=== PATIENT | female | born 1970 | race Caucasian/White ===

== ENCOUNTER 2016-11-25 19:52 | Inpatient (IN) | payer BC ==
[~2016-11-25] VITALS: Ht 165.1 cm
[~2016-11-25 19:52] MED LIST: OXYC1TAB3 PO; PRLSR20 PO; ZLF/50 PO
[2016-11-25] MEDS ORDERED: SODIUM CHLORIDE 0.9% 1000ML 1,000 ML IV STA ×2 (20:25)
[2016-11-25] MEDS ORDERED: MoRPHine SULFATE 10 MG/ML CARP/VIAL IV STA (20:25)
[2016-11-25] MEDS ORDERED: ONDANSETRON INJ 2 MG/ML 2 ML VIAL IV STA (20:25)
[2016-11-25] MEDS ORDERED: MoRPHine SULFATE 4 MG/ML 1 ML CARP\\VIAL IV PRN ×2 (20:30→22:15)
[2016-11-25 20:34] LABS: BASO % 0.5 %; BASO ABS # 0.05 K/uL (0-0.2); COMPLETE YES; EOS % 1.2 %; HEMATOCRIT 42.6 % (37-47); IG% 0.2 %; LYMPH % 30.8 %; LYMPH ABS # 2.88 K/uL (1.2-3.4); MEAN CORPUSCULAR HEMOGLOBIN 33.1 pg (25-34); MEAN CORPUSCULAR HGB CONC 35.2 g/dl (32-36); MEAN PLATELET VOLUME 11.5 fL (7.4-10.4); MONO % 6.7 %; NEUT % 60.6 %; PLATELET COUNT 270 K/uL (130-400); RED BLOOD COUNT 4.53 M/uL (4.2-5.4); WHITE BLOOD COUNT 9.35 K/uL (4.8-10.8)
--- NOTE | 2016-11-25 20:48 | DIAGNOSTIC IMAGING REPORT ---
CHEST ONE VIEW PORTABLE CLINICAL HISTORY: epigastric pain dyspnea COMPARISON STUDY: 11/14/2016 FINDINGS: The bones soft tissues and hemidiaphragms are normal. The cardiomediastinal silhouette is normal. The lungs are clear. The pulmonary vasculature is normal. IMPRESSION: Negative chest. Electronically signed by: Gold Schuler M.D. 11/25/2016 8:46 PM
[2016-11-25 20:59] LABS: ALT/SGPT 38 U/L (12-78); AMYLASE 41 U/L (25-115); BLOOD UREA NITROGEN 21 mg/dl (7-18); BUN/CREATININE RATIO 17.3 (10-20); CALCIUM 8.7 mg/dl (8.5-10.1); CARBON DIOXIDE 22 mmol/L (21-32); CHLORIDE 108 mmol/L (98-107); GLUCOSE 98 mg/dl (70-99); POTASSIUM 3.6 mmol/L (3.5-5.1); SODIUM 142 mmol/L (136-145)
[2016-11-25 21:04] LABS: ALKALINE PHOSPHATASE 73 U/L (45-117); AST/SGOT 34 U/L (15-37)
[2016-11-25 21:20] LABS: MANUAL MICROSCOPIC REQUIRED? NO; REVIEW REQ? NO; URINE APPEARANCE CLEAR (CLEAR); URINE BILIRUBIN NEG (NEG); URINE COLOR YELLOW; URINE NITRITE NEG (NEG); URINE PH 7.5 (4.5-7.5); URINE SPECIFIC GRAVITY 1.018 (1.000-1.030); UROBILINOGEN NEG (NEG)
--- NOTE | 2016-11-25 21:52 | DIAGNOSTIC IMAGING REPORT ---
Right upper quadrant ultrasound GALLBLADDER-ABD LIMITED CLINICAL HISTORY: EPIGASTRIC/ RUQ PAIN nausea TECHNIQUE: Ultrasound COMPARISON STUDY: 11/14/2016 FINDINGS: Multiple small gallstones. Gallbladder wall is slightly prominent at 4 mm. Trace amount of associated sludge within the gallbladder lumen. Common bile duct 5/6 mm throughout the bulk of this finding with slight prominence of diameter distally at 7 mm. This is unchanged from the prior study liver is uniform. Pancreas is unremarkable. IMPRESSION: Multiple small gallstones combine with a small amount of gallbladder sludge. 2. Slight thickening of the gallbladder wall with no evidence for pericholecystic fluid. 3. Slight prominence of the extra hepatic common bile duct distally unchanged from the prior study. Electronically signed by: Gold Schuler M.D. 11/25/2016 9:50 PM
[2016-11-25] MEDS ORDERED: ONDANSETRON INJ 2 MG/ML 2 ML VIAL IV PRN ×2 (22:15→23:15)
[2016-11-25] MEDS ORDERED: TRAMADOL HCL 50 MG TAB PO PRN (22:15)
--- NOTE | 2016-11-25 22:15 | EMERGENCY ROOM VISIT NOTE ---
History First contact with patient: 20:17 Chief Complaint: GI ASSESSMENT Stated Complaint: GALL BLADDER ATTACK Nursing Triage Summary: pt reports hx of gall bladder "sludge" reports RUQ abdominal pain and nausea all day History of Present Illness Patient is a 46-year-old white female who presents emergency department for evaluation of a "gallbladder attack." She was here last week for similar symptoms. She was told that she had sludge in her gallbladder. She is in the process of getting scheduled for follow-up and for a surgical evaluation. Patient states that she has been feeling well until today. She has had some loose bowel movements for most of the day, but began to feel nauseous this evening, and then developed sharp, stabbing pain in the epigastric that wraps around underneath her right breast and around her right rib cage to her right back. She rates her pain an 8/10. She had hydrocodone from her last ED visit that she took which provided her with little relief. She denies vomiting. She feels hot and sweaty. She denies any pain that radiates up into the chest, palpitations or shortness of breath. No cough, wheezing or hemoptysis. No urinary symptoms. She admits that she drinks a couple of beers daily. Last alcohol was yesterday. She ate pork and sauerkraut earlier today, but did not have that much as she did not have an appetite. Review of Systems Review of systems as per HPI. All other systems reviewed were negative. 10 systems reviewed. Past Medical/Surgical History Medical Problems: (1) Bronchitis (2) Smoking hx Surgical Problems: (1) H/O tubal ligation Family History Blood clots Gallbladder disease Heart disease Social History Smoking Status: Current Every Day Smoker Alcohol Use: heavy (beer daily) Drug Use: none Marital Status: Housing Status: lives with family Occupation Status: employed Current/Historical Medications Scheduled Omeprazole (Prilosec), 20 MG PO BID Sertraline HCl (Sertraline HCl), 75 MG PO DAILY Scheduled PRN Oxycodone Ir (Roxicodone Ir), 1-2 TAB PO Q4H PRN for Pain Allergies Coded Allergies: No Known Allergies (Verified , 11/25/16) Physical Exam Vital Signs Date Time Temp Pulse Resp B/P Pulse Ox O2 Delivery O2 Flow Rate FiO2 11/25/16 21:38 65 18 134/75 96 Room Air 11/25/16 20:47 63 11/25/16 19:59 37.0 84 18 134/92 100 Room Air Physical Exam CONSTITUTIONAL: Patient is an uncomfortable 46-year-old white female who is awake, alert, slightly diaphoretic and fidgeting due to her pain. EYES: Pupils equal, round, reactive to light and accommodation. EOMs intact without nystagmus. Sclera are anicteric. ENT: Tympanic membranes intact, with normal landmarks. External canals are clear. Oral and nasopharynx are clear. Mucous membranes are moist, no lesions , tongue and gums appear normal. CARDIOVASCULAR: Regular rate and rhythm, with normal S1 and S2, no murmur or gallop or rub is heard. No carotid bruits auscultated. No JVD. Peripheral pulses easy to palpable. RESPIRATORY: Breath sounds equal and clear to auscultation without wheezes, rales, or rhonchi heard. Full and equal chest expansion without accessory muscle use or retractions. GI: Bowel sounds are present. Abdomen is soft, nondistended, tender to palpation in the epigastric and the right upper quadrant, with voluntary guarding. MUSCULOSKELETAL: Full range of motion of extremities x 4 with good strength. No cyanosis, edema, joint tenderness or swelling. No deformity. INTEGUMENTARY: No lesions or rash, normal skin turgor. NEUROLOGICAL: Alert, oriented, and cooperative. Cranial nerves, sensation and strength grossly intact. Pupils round, equal, and react to light, EOMs are full. LYMPH: No lymphadenopathy. Medical Decision & Procedures ER Provider Diagnostic Interpretation: CHEST ONE VIEW PORTABLE CLINICAL HISTORY: epigastric pain dyspnea COMPARISON STUDY: 11/14/2016 FINDINGS: The bones soft tissues and hemidiaphragms are normal. The cardiomediastinal silhouette is normal. The lungs are clear. The pulmonary vasculature is normal. IMPRESSION: Negative chest. Right upper quadrant ultrasound GALLBLADDER-ABD LIMITED CLINICAL HISTORY: EPIGASTRIC/ RUQ PAIN nausea TECHNIQUE: Ultrasound COMPARISON STUDY: 11/14/2016 FINDINGS: Multiple small gallstones. Gallbladder wall is slightly prominent at 4 mm. Trace amount of associated sludge within the gallbladder lumen. Common bile duct 5/6 mm throughout the bulk of this finding with slight prominence of diameter distally at 7 mm. This is unchanged from the prior study liver is uniform. Pancreas is unremarkable. IMPRESSION: Multiple small gallstones combine with a small amount of gallbladder sludge. 2. Slight thickening of the gallbladder wall with no evidence for pericholecystic fluid. 3. Slight prominence of the extra hepatic common bile duct distally unchanged from the prior study. Laboratory Results 11/25/16 20:15 Red Blood Count 4.53, Mean Corpuscular Volume 94.0, Mean Corpuscular Hemoglobin 33.1, Mean Corpuscular Hemoglobin Concent 35.2, Mean Platelet Volume 11.5, Neutrophils (%) (Auto) 60.6, Lymphocytes (%) (Auto) 30.8, Monocytes (%) (Auto) 6.7, Eosinophils (%) (Auto) 1.2, Basophils (%) (Auto) 0.5, Neutrophils # (Auto) 5.66, Lymphocytes # (Auto) 2.88, Monocytes # (Auto) 0.63, Eosinophils # (Auto) 0.11, Basophils # (Auto) 0.05 11/25/16 20:15 Test 11/25/16 20:15 11/25/16 21:00 White Blood Count 9.35 K/uL (4.8-10.8) Red Blood Count 4.53 M/uL (4.2-5.4) Hemoglobin 15.0 g/dL (12.0-16.0) Hematocrit 42.6 % (37-47) Mean Corpuscular Volume 94.0 fL (80-100) Mean Corpuscular Hemoglobin 33.1 pg (25-34) Mean Corpuscular Hemoglobin Concent 35.2 g/dl (32-36) Platelet Count 270 K/uL (130-400) Mean Platelet Volume 11.5 fL (7.4-10.4) Neutrophils (%) (Auto) 60.6 % Lymphocytes (%) (Auto) 30.8 % Monocytes (%) (Auto) 6.7 % Eosinophils (%) (Auto) 1.2 % Basophils (%) (Auto) 0.5 % Neutrophils # (Auto) 5.66 K/uL (1.4-6.5) Lymphocytes # (Auto) 2.88 K/uL (1.2-3.4) Monocytes # (Auto) 0.63 K/uL (0.11-0.59) Eosinophils # (Auto) 0.11 K/uL (0-0.5) Basophils # (Auto) 0.05 K/uL (0-0.2) RDW Standard Deviation 48.4 fL (36.4-46.3) RDW Coefficient of Variation 14.1 % (11.5-14.5) Immature Granulocyte % (Auto) 0.2 % Immature Granulocyte # (Auto) 0.02 K/uL (0.00-0.02) Anion Gap 12.0 mmol/L (3-11) Estimated GFR () 63.7 Estimated GFR (Non- 54.9 BUN/Creatinine Ratio 17.3 (10-20) Calcium Level 8.7 mg/dl (8.5-10.1) Total Bilirubin 0.1 mg/dl (0.2-1) Direct Bilirubin < 0.1 mg/dl (0-0.2) Aspartate Amino Transf (AST/SGOT) 34 U/L (15-37) Alanine Aminotransferase (ALT/SGPT) 38 U/L (12-78) Alkaline Phosphatase 73 U/L (45-117) Troponin I < 0.015 ng/ml (0-0.045) Total Protein 7.6 gm/dl (6.4-8.2) Albumin 3.7 gm/dl (3.4-5.0) Amylase Level 41 U/L (25-115) Lipase 295 U/L (73-393) Urine Color YELLOW Urine Appearance CLEAR (CLEAR) Urine pH 7.5 (4.5-7.5) Urine Specific [place] 1.018 (1.000-1.030) Urine Protein NEG (NEG) Urine Glucose (UA) NEG (NEG) Urine Ketones NEG (NEG) Urine Occult Blood NEG (NEG) Urine Nitrite NEG (NEG) Urine Bilirubin NEG (NEG) Urine Urobilinogen NEG (NEG) Urine Leukocyte Esterase NEG (NEG) Medications Administered Medications (Trade) Dose Ordered Sig/Matteo Route Start Time Stop Time Status Last Admin Dose Admin Sodium Chloride 1,000 ml @ 999 mls/hr Q1H1M STAT IV 11/25/16 20:25 11/25/16 21:25 DC 11/25/16 20:39 999 MLS/HR Sodium Chloride (Nss 1000ml) 1,000 ml @ 250 mls/hr Q4H STAT IV 11/25/16 20:25 11/26/16 00:24 11/25/16 20:25 250 MLS/HR Ondansetron HCl (Zofran Inj) 4 mg NOW STAT IV 11/25/16 20:25 11/25/16 20:28 DC 11/25/16 20:37 4 MG Morphine Sulfate (MoRPHine SULFATE INJ) 6 mg NOW STAT IV 11/25/16 20:25 11/25/16 20:28 DC 11/25/16 20:38 6 MG Morphine Sulfate (MoRPHine SULFATE INJ) 4 mg Q1H PRN IV 11/25/16 20:30 12/09/16 20:29 11/25/16 21:54 4 MG ECG Indication: abdominal pain, chest pain Rate (beats per minute): 65 Rhythm: normal sinus Findings: no acute ischemic change Change: no significant change ED Course The patient was seen and assessed as above. Her old records were reviewed. IV access was obtained. Laboratory studies were collected and she is placed on a staffing executive. EKG was performed and was as noted above. Stat portable chest x-ray was obtained and was unremarkable. Patient was medicated with morphine 4 mg IV 2 and Zofran 4 mg IV. She was hydrated with normal saline solution. Urinalysis, CBC with differential, BMP, LFTs, amylase, lipase and troponin were all drawn. Right upper quadrant ultrasound was performed. Laboratory studies revealed a normal white count at 9300, H&H is normal. Electrolytes are within normal limits. BUN and creatinine 21 and 1.2. Liver functions and a gritty enzymes are not elevated. Troponin is 1. Urinalysis was clear. Chest x-ray was unremarkable. Right upper quadrant ultrasound again demonstrated cholelithiasis and gallbladder sludge. The gallbladder wall is slightly thickened, but there is no evidence for pericholecystic fluid. Ultrasound and labs are not indicative of acute cholecystitis at this time. The patient was reassessed. She still continues to have some pain and was concerned about her ability to manage her symptoms at home. Treatment options were discussed with her. She was feeling more comfortable coming into the hospital for pain management. Patient was reviewed with the attending physician , discussed with the it manager and [facility] and [facility]. Differential diagnoses entertained included ACS, acute [place], gastritis, esophagitis, peptic ulcer disease, perforated ulcer, pancreatitis, acute cholecystitis, ascending cholangitis, biliary colic, bowel section, among others. Medical Decision See ED Course. Impression Primary Impression: Biliary colic Departure Information Referrals Gina Morrissey M.D. (PCP) Patient Instructions A Signature Page, My [facility]
[2016-11-25] MEDS ORDERED: IV FLUIDS COMPLETED PRN (23:00)
[2016-11-25 23:06] LABS: THYROID STIMULATING HORMONE 3.13 uIu/ml (0.300-4.500)
[2016-11-25] MEDS ORDERED: ACETAMINOPHEN 325 MG TAB PO PRN (23:15)
[2016-11-25] MEDS ORDERED: LORAZEPAM 2 MG/ML 1 ML VIAL IV PRN (23:15)
[2016-11-25] MEDS ORDERED: PROMETHAZINE HCL INJ 12.5 MG in SODIUM CHLORIDE 0.9% 50ML 50 ML IV PRN (23:15)
[2016-11-26 00:45] VITALS: BP 141/89; PULSE 70; TEMP 36.4; Ht 165.1 cm
--- NOTE | 2016-11-26 00:49 | HISTORY & PHYSICAL EXAMINATION ---
DATE OF ADMISSION: 11/25/2016 PRIMARY CARE PHYSICIAN: Dr. Morrissey. Hx obtained from px and records. CHIEF COMPLAINT: Abdominal pain. HISTORY OF PRESENT ILLNESS: Medical history significant for mood disorder, GERD, ongoing tobacco abuse. One week history of epigastric pain, achy, going to her right side, worse with eating. Patient was seen at the Emergency Room last week. Gallbladder ultrasound showed trace amount of sludge and debris in the gallbladder lumen. Impression was biliary colic. The patient discharged on pain meds. Outpatient Surgery consultation recommended. Constant waxing and waning abd pain at home. No fever, no chills, some nausea, stools dark and loose. No emesis. Patient returned to the Emergency Room. MEDICAL HISTORY: As above. SURGERIES: She has had bilateral tubal ligation, gynecologic procedures, breast lump removal, back surgery, soft tissue(lipoma) removal. HOME MEDICATIONS: Include Prilosec, sertraline. ALLERGIES: No known drug allergies. FAMILY HISTORY: Gallbladder, heart disease, stroke. PERSONAL AND SOCIAL HISTORY: Reports one-fourth pack daily. No chronic intake of alcohol. 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 REVIEW OF SYSTEMS: As per HPI, all other ROS negative. PHYSICAL EXAMINATION: VITAL SIGNS: Blood pressure was noted to be 154/92, pulse 84, RR 18, T 37, O2 sats 100 on room air. GENERAL: Noted to be slightly uncomfortable, obese, no respiratory distress. SKIN : normal color HEENT: [place] palpebral conjunctivae. Dry mucosa. NECK: Short neck. LUNGS: Decreased breath sounds. HEART: Regular rate and rhythm. ABDOMEN: Epigastric tenderness. RECTAL : intact sphincter, dark brown stool, FOBT negative EXTREMITIES: No edema. no tenderness NEUROLOGIC: No gross focality. LABORATORY DATA: Hemoglobin is 15, hematocrit 42.6, white cell count 7.3, platelets 270. Sodium 140, potassium 3.6, chloride 108, CO2 22, BUN 29, creatinine 1.2, glucose is noted to be 98. LFTs, lipase normal Gallbladder ultrasound, slight thickening of the gallbladder wall with no evidence of pericholecystic fluid, multiple gallstones with multiple amount of gallbladder sludge. ASSESSMENT: 1. Biliary colic intractable symptoms. no sepsis. 2. Mood disorder. stable on meds 3. Ongoing tobacco abuse. 4. loose stools ro cdif PLAN: Observation GMF analgesia Surgery consult. RE biliary colic stool cdif Nicotine patch. DVT prophylaxis, SCDs. Full code. MTDD
[2016-11-26] MEDS ORDERED: LORAZEPAM INJ 0.5 MG in SYRINGE 0.75 ML IV PRN (01:45)
[2016-11-26] MEDS: LACTATED RINGER'S 1000ML 1,000 ML IV SCH ×2 (02:08→11:09)
[2016-11-26] MEDS: KETOROLAC TROMETHAMINE 30 MG/ML VIAL IV PRN ×3 (02:12→21:06)
[2016-11-26 03:40] LABS: PREG INTERNAL NEGATIVE QC NEG CLEAR BACKGROUND; PREG INTERNAL POSITIVE QC POS CONTROL LINE
[2016-11-26 07:00] VITALS: BP 110/74; PULSE 53; TEMP 36.3; O2SAT 96
[2016-11-26] MEDS: PANTOprazole SOD 40 MG TAB PO SCH ×2 (08:19→21:06)
[2016-11-26] MEDS: SERTRALINE HCL 50 MG TAB PO SCH (08:19)
[2016-11-26] MEDS: NICOTINE 7 MG/24 HR TDSY TD SCH (08:20)
--- NOTE | 2016-11-26 10:54 | History and Physical ---
History & Physical Date & Time of Service: Nov 26, 2016 at 10:42 Chief Complaint: Biliary Colic Primary Care Physician: Gina Morrissey M.D. History of Present Illness Source: patient Taina Conway is a 46 year old female who was admitted to hospital for RUQ pain with nausea foe 1 week, last week, pt came to ER with RUQ pain, pt was sent to home with pain medicine, now, pt is still have RUQ pain, and with nausea , pt denies fever, no diarrhea, but some back pain, the fat food is worse pain, Past Medical/Surgical History Medical Problems: (1) Biliary colic Status: Resolved (2) Bronchitis Status: Resolved (3) Depressive Disorder Nec Status: Chronic (4) Epigastric abdominal pain Status: Resolved (5) GERD (gastroesophageal reflux disease) Status: Chronic (6) Non-cardiac chest pain Status: Resolved Surgical Problems: (1) H/O tubal ligation Status: Resolved Social History Problems: (1) Smoking hx Status: Chronic Family History Blood clots Gallbladder disease Heart disease mother and sister had gallstones. Social History Smoking Status: Current Every Day Smoker Smokeless Tobacco Use: No Alcohol Use: occasionally Drug Use: none Marital Status: Occupational Status: employed Immunizations History of Influenza Vaccine: Yes History of Tetanus Vaccine?: Unknown Tetanus Immunization Date: Jul 18, 2004 History of Pneumococcal: No History of Hepatitis B Vaccine: Unknown Allergies Coded Allergies: No Known Allergies (Verified , 11/25/16) Home Medications Scheduled Omeprazole (Prilosec), 20 MG PO BID Sertraline HCl (Sertraline HCl), 75 MG PO DAILY Scheduled PRN Oxycodone Ir (Roxicodone Ir), 1-2 TAB PO Q4H PRN for Pain Review of Systems Constitutional: No chills, No fatigue, No fever, No problem reported, No sweats , No weakness, No weight loss Eyes: No diplopia, No discharge, No eye pain, No problem reported, No redness, No worsening of vision ENT: No dental problems, No hearing loss, No nasal symptoms, No problem reported, No sore throat, No tinnitus, No trouble swallowing, No unusual epistaxis Respiratory: No cough, No dyspnea at rest, No dyspnea on exertion, No hemoptysis, No problem reported, No shortness of breath, No sputum, No wheezing Cardiovascular: No PND, No chest pain, No claudication, No edema, No orthopnea , No palpitations, No problem reported Abdomen: + nausea, + pain Musculoskeletal: No calf pain, No joint pain, No muscle pain, No problem reported, No swelling Genitourinary - Female: No dysmenorrhea, No dysuria, No hematuria, No menorrhagia, No metrorrhagia, No , No problem reported, No rash, No urinary frequency, No urinary incontinence, No urinary retention, No urinary urgency, No vaginal bleeding, No vaginal discharge, No vaginal itching, No vulvodynia Neurologic: No balance problems, No memory loss, No numbness/tingling, No paralysis, No problem reported, No vertigo, No weakness Psychiatric: + anxiety Endocrine: No excessive thirst, No excessive urination, No fatigue, No problem reported Hematologic / Lymphatic: No abnormal bleeding/bruising, No clotting problems, No night sweats, No problem reported, No swollen lymph nodes Allergic / Immunologic: No environmental allergies, No food allergies, No frequent infections, No hives, No pet sensitivities, No poor healing, No problem reported, No prolonged convalescence, No seasonal allergies Physical Exam Vital Signs Date Time Temp Pulse Resp B/P Pulse Ox O2 Delivery O2 Flow Rate FiO2 11/26/16 07:12 Room Air 11/26/16 07:00 36.3 53 18 110/74 96 Room Air 11/26/16 00:45 36.4 70 18 141/89 Room Air 11/26/16 00:13 65 18 143/41 97 Room Air 11/25/16 21:38 65 18 134/75 96 Room Air 11/25/16 20:47 63 11/25/16 19:59 37.0 84 18 134/92 100 Room Air General Appearance: WD/WN, no apparent distress Head: normocephalic Eyes: normal inspection ENT: normal ENT inspection Neck: supple Respiratory/Chest: chest non-tender Cardiovascular: regular rate, rhythm, no edema, no gallop, no JVD Abdomen/GI: normal bowel sounds, soft, + tenderness Back: normal inspection Extremities/Musculoskelatal: normal inspection, no calf tenderness, normal capillary refill, no pedal edema Neurologic/Psych: grubber II-XII nml as tested, no motor/sensory deficits Skin: normal color, warm/dry, no rash Lymphatic: no adenopathy Diagnostics Laboratory Results Results Past 24 Hours Test 11/25/16 20:15 11/25/16 21:00 Range/Units White Blood Count 9.35 4.8-10.8 K/uL Red Blood Count 4.53 4.2-5.4 M/uL Hemoglobin 15.0 12.0-16.0 g/dL Hematocrit 42.6 37-47 % Mean Corpuscular Volume 94.0 80-100 fL Mean Corpuscular Hemoglobin 33.1 25-34 pg Mean Corpuscular Hemoglobin Concent 35.2 32-36 g/dl Platelet Count 270 130-400 K/uL Mean Platelet Volume 11.5 7.4-10.4 fL Neutrophils (%) (Auto) 60.6 % Lymphocytes (%) (Auto) 30.8 % Monocytes (%) (Auto) 6.7 % Eosinophils (%) (Auto) 1.2 % Basophils (%) (Auto) 0.5 % Neutrophils # (Auto) 5.66 1.4-6.5 K/uL Lymphocytes # (Auto) 2.88 1.2-3.4 K/uL Monocytes # (Auto) 0.63 0.11-0.59 K/uL Eosinophils # (Auto) 0.11 0-0.5 K/uL Basophils # (Auto) 0.05 0-0.2 K/uL RDW Standard Deviation 48.4 36.4-46.3 fL RDW Coefficient of Variation 14.1 11.5-14.5 % Immature Granulocyte % (Auto) 0.2 % Immature Granulocyte # (Auto) 0.02 0.00-0.02 K/uL Sodium Level 142 136-145 mmol/L Potassium Level 3.6 3.5-5.1 mmol/L Chloride Level 108 98-107 mmol/L Carbon Dioxide Level 22 21-32 mmol/L Anion Gap 12.0 3-11 mmol/L Blood Urea Nitrogen 21 7-18 mg/dl Creatinine 1.20 0.60-1.20 mg/dl Estimated GFR () 63.7 Estimated GFR (Non- 54.9 BUN/Creatinine Ratio 17.3 10-20 Random Glucose 98 70-99 mg/dl Calcium Level 8.7 8.5-10.1 mg/dl Magnesium Level 2.0 1.8-2.4 mg/dl Total Bilirubin 0.1 0.2-1 mg/dl Direct Bilirubin < 0.1 0-0.2 mg/dl Aspartate Amino Transf (AST/SGOT) 34 15-37 U/L Alanine Aminotransferase (ALT/SGPT) 38 12-78 U/L Alkaline Phosphatase 73 45-117 U/L Troponin I < 0.015 0-0.045 ng/ml Total Protein 7.6 6.4-8.2 gm/dl Albumin 3.7 3.4-5.0 gm/dl Amylase Level 41 25-115 U/L Lipase 295 73-393 U/L Thyroid Stimulating Hormone (TSH) 3.130 0.300-4.500 uIu/ml Urine Color YELLOW Urine Appearance CLEAR CLEAR Urine pH 7.5 4.5-7.5 Urine Specific [place] 1.018 1.000-1.030 Urine Protein NEG NEG Urine Glucose (UA) NEG NEG Urine Ketones NEG NEG Urine Occult Blood NEG NEG Urine Nitrite NEG NEG Urine Bilirubin NEG NEG Urine Urobilinogen NEG NEG Urine Leukocyte Esterase NEG NEG Urine Test NEG NEG Diagnostic Radiology U/S-IMPRESSION: Multiple small gallstones combine with a small amount of gallbladder sludge. 2. Slight thickening of the gallbladder wall with no evidence for pericholecystic fluid. 3. Slight prominence of the extra hepatic common bile duct distally unchanged from the prior study. Impression Assessment and Plan IMP Acute cholecystitis. Plan, IV fluid, IV antibiotic, control pain, Full liquid diet today, NPO from [place] Pt will go to OR for laparoscopic cholecystectomy, possible open or cholangiogram, D/W benefits, risks and alternatives of the procedure, the risks- infection, bleeding, injury CBD, bowel, may need ERCP, GA, dvt, stroke, incisional hernia, , pt understood, she agrees with the plan. I answered all questions, Advanced Directives Existing Advance Directive: No Existing Living Will: No Existing Power of Javascript Developer: No VTE Prophylaxis VTE Risk Assessment Done? Y/N: Yes Risk Level: Moderate
[2016-11-26] MEDS ORDERED: PIPERACILL/TAZOBAC CONSULT ACTIVE PRN (11:00)
[2016-11-26] MEDS ORDERED: PIPERACILL/TAZOBAC IV 3.375 GM in DEXTROSE 5% 100ML IV ONE (11:15)
[2016-11-26] MEDS: METRONIDAZOLE / NSS 500 MG in PREMIXED NSS 100 ML IV SCH ×2 (12:24→19:11)
--- NOTE | 2016-11-26 13:11 | Hospitalist Progress Note ---
Hospitalist Progress Note Date of Service Nov 26, 2016. Subjective Pt evaluation today including: conversation w/ patient, physical exam, chart review, lab review, review of studies, review of inpatient medication list Patient is seen and examined at bedside. Patient states " I feel bloated". States having RUQ and epigastric pain radiating to back. Reports diarrhea, nausea, vomiting resolved. Objective Vital Signs Date Time Temp Pulse Resp B/P Pulse Ox O2 Delivery O2 Flow Rate FiO2 11/26/16 07:12 Room Air 11/26/16 07:00 36.3 53 18 110/74 96 Room Air 11/26/16 00:45 36.4 70 18 141/89 Room Air 11/26/16 00:13 65 18 143/41 97 Room Air 11/25/16 21:38 65 18 134/75 96 Room Air 11/25/16 20:47 63 11/25/16 19:59 37.0 84 18 134/92 100 Room Air Physical Exam General Appearance: WD/WN, no apparent distress Eyes: normal inspection, PERRL, EOMI ENT: normal ENT inspection, hearing grossly normal, TMs normal, pharynx normal Neck: supple, no adenopathy, thyroid normal, no JVD, no carotid bruits, trachea midline Respiratory/Chest: chest non-tender, lungs clear, normal breath sounds, no respiratory distress, no accessory muscle use Cardiovascular: regular rate, rhythm, no edema, no gallop, no JVD, no murmur Abdomen: normal bowel sounds, soft, no organomegaly, + tenderness, + pertinent finding (No guarding/rigidity) Extremities: normal range of motion, non-tender, normal inspection, no pedal edema, no calf tenderness, normal capillary refill, pelvis stable 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, no motor/sensory deficits, alert, normal mood/affect, oriented x 3 Skin: normal color, warm/dry, no rash Lymphatic: no adenopathy Laboratory Results Last 24 Hours Test 11/25/16 20:15 11/25/16 21:00 White Blood Count 9.35 K/uL Red Blood Count 4.53 M/uL Hemoglobin 15.0 g/dL Hematocrit 42.6 % Mean Corpuscular Volume 94.0 fL Mean Corpuscular Hemoglobin 33.1 pg Mean Corpuscular Hemoglobin Concent 35.2 g/dl Platelet Count 270 K/uL Mean Platelet Volume 11.5 fL Neutrophils (%) (Auto) 60.6 % Lymphocytes (%) (Auto) 30.8 % Monocytes (%) (Auto) 6.7 % Eosinophils (%) (Auto) 1.2 % Basophils (%) (Auto) 0.5 % Neutrophils # (Auto) 5.66 K/uL Lymphocytes # (Auto) 2.88 K/uL Monocytes # (Auto) 0.63 K/uL Eosinophils # (Auto) 0.11 K/uL Basophils # (Auto) 0.05 K/uL RDW Standard Deviation 48.4 fL RDW Coefficient of Variation 14.1 % Immature Granulocyte % (Auto) 0.2 % Immature Granulocyte # (Auto) 0.02 K/uL Sodium Level 142 mmol/L Potassium Level 3.6 mmol/L Chloride Level 108 mmol/L Carbon Dioxide Level 22 mmol/L Anion Gap 12.0 mmol/L Blood Urea Nitrogen 21 mg/dl Creatinine 1.20 mg/dl Estimated GFR () 63.7 Estimated GFR (Non- 54.9 BUN/Creatinine Ratio 17.3 Random Glucose 98 mg/dl Calcium Level 8.7 mg/dl Magnesium Level 2.0 mg/dl Total Bilirubin 0.1 mg/dl Direct Bilirubin < 0.1 mg/dl Aspartate Amino Transf (AST/SGOT) 34 U/L Alanine Aminotransferase (ALT/SGPT) 38 U/L Alkaline Phosphatase 73 U/L Troponin I < 0.015 ng/ml Total Protein 7.6 gm/dl Albumin 3.7 gm/dl Amylase Level 41 U/L Lipase 295 U/L Thyroid Stimulating Hormone (TSH) 3.130 uIu/ml Urine Color YELLOW Urine Appearance CLEAR Urine pH 7.5 Urine Specific Bath 1.018 Urine Protein NEG Urine Glucose (UA) NEG Urine Ketones NEG Urine Occult Blood NEG Urine Nitrite NEG Urine Bilirubin NEG Urine Urobilinogen NEG Urine Leukocyte Esterase NEG Urine Test NEG Diagnostic Results Gall bladder Ultrasound: 1.Multiple small gallstones combine with a small amount of gallbladder sludge. 2. Slight thickening of the gallbladder wall with no evidence for pericholecystic fluid. 3. Slight prominence of the extra hepatic common bile duct distally unchanged from the prior study. Assessment and Plan Patient is a 46 Yr Female with PMH of Mood disorder, GERD and Tobacco use disorder presented with 1 week history of RUQ and Epigastric abdominal pain which is worse with eating associated with nausea. Gallbladder ultrasound showed trace amount of sludge and debris in the gallbladder lumen. Assessment and Plan: Acute abdominal pain secondary to acute cholecystitis/Biliary colic: Will change patient to inpatient status Full liquid diet Continue IV Zosyn Continue IV fluids Pain control with IV morphine Appreciate surgery input NPO after midnight Laparoscopic cholecystectomy, possible open or cholangiogram tomorrow GERD: Stable Mood disorder: Stable Continue Zoloft Tobacco use disorder [employer] [employer] to quit smoking On Nicotine patch
[2016-11-26 15:00] VITALS: BP 121/80; PULSE 51; TEMP 36.4; O2SAT 96
[2016-11-26] MEDS: OXYCODONE/ACETAMINOPHEN 5-325 TAB PO PRN (15:15)
[2016-11-26] MEDS: PIPERACILL/TAZOBAC IV 3.375 GM in DEXTROSE 5% 100ML 100 ML IV SCH (17:55)
--- NOTE | 2016-11-26 20:20 | Anesthesiology Progress Note ---
Pre-OP Anesthesia Assessment Date of Note Nov 26, 2016. Review patient information reviewed, chart reviewed, labs reviewed, acceptable for surgery Notes The patient was seen and examined, the chart reviewed. She is a good candidate for surgery tomorrow.
[2016-11-26 22:55] VITALS: BP 123/82; PULSE 52; TEMP 36.4; O2SAT 98
[2016-11-27] MEDS: PIPERACILL/TAZOBAC IV 3.375 GM in DEXTROSE 5% 100ML 100 ML IV SCH ×2 (02:37→09:35)
[2016-11-27] MEDS: METRONIDAZOLE / NSS 500 MG in PREMIXED NSS 100 ML IV SCH (02:37)
[2016-11-27] MEDS: LACTATED RINGER'S 1000ML 1,000 ML IV SCH ×2 (02:39→14:06)
[2016-11-27 06:29] LABS: HEMATOCRIT 38.8 % (37-47); MEAN CELL VOLUME 96.5 fL (80-100); MEAN CORPUSCULAR HEMOGLOBIN 32.1 pg (25-34); MEAN CORPUSCULAR HGB CONC 33.2 g/dl (32-36); MEAN PLATELET VOLUME 11.9 fL (7.4-10.4); PLATELET COUNT 202 K/uL (130-400); RED BLOOD COUNT 4.02 M/uL (4.2-5.4); WHITE BLOOD COUNT 5.47 K/uL (4.8-10.8)
[2016-11-27 07:09] VITALS: BP 127/83; PULSE 50; TEMP 36.5; O2SAT 96
[2016-11-27 07:33] LABS: BLOOD UREA NITROGEN 9 mg/dl (7-18); BUN/CREATININE RATIO 9.9 (10-20); CALCIUM 8.1 mg/dl (8.5-10.1); CARBON DIOXIDE 26 mmol/L (21-32); CHLORIDE 111 mmol/L (98-107); CREATININE 0.92 mg/dl (0.60-1.20); GLUCOSE 85 mg/dl (70-99); POTASSIUM 4.1 mmol/L (3.5-5.1); SODIUM 146 mmol/L (136-145)
[2016-11-27] MEDS ORDERED: NEOSTIGMINE METHYLSULFATE 5 MG/5 ML SYR ONE (08:07)
[2016-11-27] MEDS ORDERED: DEXAMETHASONE SOD INJ 4 MG/ML VIAL ONE ×2 (08:07→09:53)
[2016-11-27] MEDS ORDERED: MIDAZOLAM HCL 1 MG/ML 2ML VIAL ONE (08:07)
[2016-11-27] MEDS ORDERED: GLYCOPYRROLATE INJ 0.2 MG/ML VIAL ONE (08:07)
[2016-11-27] MEDS ORDERED: ONDANSETRON INJ 2 MG/ML 2 ML VIAL ONE ×2 (08:07→09:53)
[2016-11-27] MEDS ORDERED: PROPOFOL IV EMULSION 10 MG/ML 20 ML VIAL IV ONE (08:07)
[2016-11-27] MEDS ORDERED: LIDOCAINE HCL 2% 2 ML VIAL (20MG/ML) ONE (08:07)
[2016-11-27] MEDS ORDERED: FENTANYL CITRATE INJ 50 MCG/1 ML 2 ML VIAL ONE (08:08)
--- NOTE | 2016-11-27 08:59 | History & Physical Bridge Note ---
H&P Re-Evaluation Bridge Note: I have examined the patient, reviewed the History & Physical and in the interval since the performance of the History & Physical I have noted the following changes of clinical significance: No changes noted
[2016-11-27] MEDS ORDERED: FENTANYL CITRATE INJ 50 MCG/1 ML 2 ML VIAL IV PRN (09:00)
[2016-11-27] MEDS ORDERED: HYDROmorphone INJ 1 MG/ML SYR IV PRN (09:00)
[2016-11-27] MEDS ORDERED: ATROPINE SULFATE 0.1 MG/ML 5ML SYR IV PRN (09:00)
[2016-11-27] MEDS ORDERED: ONDANSETRON INJ 2 MG/ML 2 ML VIAL IV PRN (09:00)
[2016-11-27] MEDS ORDERED: EpHEDrine SULFATE INJ 50 MG/ML AMP IV PRN (09:00)
[2016-11-27] MEDS ORDERED: SCOPOLAMINE 1.5 MG TDSY TD ONE (09:01)
[2016-11-27] MEDS ORDERED: CEFAZOLIN SOD 1 GM VIAL ONE (09:53)
[2016-11-27] MEDS ORDERED: BACITRACIN ZINC OINT TOP ONE (10:40)
[2016-11-27] MEDS ORDERED: SURGICEL ABSORB HEMOSTAT 2IN X 14IN TOP ONE (10:40)
[2016-11-27] MEDS ORDERED: MIX: LIDOCAINE 1% + MARCAINE 0.5% (50:50) INJ ONE (11:02)
--- NOTE | 2016-11-27 11:34 | [facility] Post Operative Brief Note ---
Immediate Operative Summary Operative Date Nov 27, 2016. Pre-Operative Diagnosis acute cholecystitis Post-Operative Diagnosis acute cholecystitis Procedure(s) Performed Laparoscopic Cholecystectomy Surgeon Dr. 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 Fluids (cc crystalloids) 1400ml Specimens A. Gallbladder Drains none Complication(s) None Disposition Recovery Room / PACU
--- NOTE | 2016-11-27 12:01 | Anesthesiology Progress Note ---
Anesthesia Post Op Note Date & Time Nov 27, 2016 at 12:01 Vital Signs Pain Intensity: 5 Vital Signs Past 12 Hours Date Time Temp Pulse Resp B/P Pulse Ox O2 Delivery O2 Flow Rate FiO2 11/27/16 11:49 59 16 11/27/16 11:49 58 16 95 11/27/16 11:44 67 19 11/27/16 11:44 66 19 125/87 97 11/27/16 11:39 63 13 125/65 97 11/27/16 11:39 63 13 11/27/16 11:38 62 15 97 11/27/16 11:38 65 15 11/27/16 11:34 123/68 11/27/16 11:33 67 14 98 11/27/16 11:33 67 14 11/27/16 11:29 121/68 11/27/16 11:28 61 15 11/27/16 11:28 62 15 97 11/27/16 11:24 141/78 11/27/16 11:23 36.2 81 12 136/87 96 Mask 10 11/27/16 11:23 69 12 97 11/27/16 11:23 68 12 11/27/16 08:10 Room Air 11/27/16 07:09 36.5 50 16 127/83 96 Room Air Notes Mental Status: alert / awake / arousable, participated in evaluation Pt Amnestic to Procedure: Yes Nausea / Vomiting: adequately controlled Pain: adequately controlled Airway Patency, RR, SpO2: stable & adequate BP & HR: stable & adequate Hydration State: stable & adequate Anesthetic Complications: no major complications apparent
[2016-11-27 12:20] VITALS: BP 119/77; PULSE 54; TEMP 36.5; O2SAT 95
[2016-11-27 12:48] VITALS: BP 123/84; PULSE 53; O2SAT 96
[2016-11-27] MEDS: KETOROLAC TROMETHAMINE 30 MG/ML VIAL IV PRN ×2 (12:59→21:36)
--- NOTE | 2016-11-27 13:08 | Hospitalist Progress Note ---
Hospitalist Progress Note Date of Service Nov 27, 2016. Subjective Pt evaluation today including: conversation w/ patient, physical exam, chart review, lab review, review of studies, review of inpatient medication list Patient is interviewed and examined at bedside. She reports still has 3/10 abdominal pain. Denies any nausea, vomiting, diarrhea, chest pain, SOB. Medications Medications (Trade) Dose Ordered Sig/Matteo Route Start Time Stop Time Status Last Admin Dose Admin Miscellaneous 1 ea 1 ea HS N/A 11/26/16 21:00 12/26/16 20:59 11/26/16 21:07 1 EA Piperacillin Sod/ Tazobactam Sod/ Dextrose (Zosyn Iv/D5 100ml) 115 ml @ 28.75 mls/ hr Q8@0200,1000,1800 IV 11/26/16 18:00 11/27/16 17:59 11/27/16 09:35 28.75 MLS/HR Fentanyl Citrate (Fentanyl Inj) 50 mcg Q5M PRN IV 11/27/16 09:00 11/27/16 14:00 11/27/16 11:24 50 MCG Miscellaneous (Surgicel Absorb Hemostat 2in X 14in) 1 ea ONE ONCE TOP 11/27/16 10:40 11/27/16 10:41 DC 11/27/16 10:40 1 EA Bacitracin (BACITRACIN ZINC Oint) 1 appln ONE ONCE TOP 11/27/16 10:40 11/27/16 10:41 DC 11/27/16 10:40 1 APPLN Miscellaneous (Lidocaine 1% + Marcaine 0.5%) 20 ml ONE ONCE INJ 11/27/16 11:02 11/27/16 11:03 DC 11/27/16 11:02 20 ML Objective Vital Signs Date Time Temp Pulse Resp B/P Pulse Ox O2 Delivery O2 Flow Rate FiO2 11/27/16 12:48 53 16 123/84 96 Nasal Cannula 2.0 11/27/16 12:20 Nasal Cannula 2.0 11/27/16 12:20 95 Nasal Cannula 2.0 11/27/16 12:20 36.5 54 16 119/77 95 Nasal Cannula 2.0 11/27/16 12:05 52 15 93 11/27/16 12:05 51 15 11/27/16 12:04 111/72 11/27/16 12:02 36.4 11/27/16 12:00 51 14 11/27/16 12:00 52 14 92 11/27/16 11:59 112/73 11/27/16 11:55 62 16 11/27/16 11:55 61 16 94 11/27/16 11:54 119/83 11/27/16 11:50 56 12 91 11/27/16 11:50 57 12 11/27/16 11:49 59 16 11/27/16 11:49 58 16 95 11/27/16 11:44 67 19 11/27/16 11:44 66 19 125/87 97 11/27/16 11:39 63 13 125/65 97 11/27/16 11:39 63 13 11/27/16 11:38 62 15 97 11/27/16 11:38 65 15 11/27/16 11:34 123/68 11/27/16 11:33 67 14 98 11/27/16 11:33 67 14 11/27/16 11:29 121/68 11/27/16 11:28 61 15 11/27/16 11:28 62 15 97 11/27/16 11:24 141/78 11/27/16 11:23 36.2 81 12 136/87 96 Mask 10 11/27/16 11:23 69 12 97 11/27/16 11:23 68 12 11/27/16 08:10 Room Air 11/27/16 07:09 36.5 50 16 127/83 96 Room Air 11/26/16 23:00 Room Air 11/26/16 22:55 36.4 52 20 123/82 98 Room Air 11/26/16 15:15 Room Air 11/26/16 15:00 36.4 51 18 121/80 96 Room Air Physical Exam Notes: General Appearance: WD/WN, no apparent distress Eyes: normal inspection, PERRL, EOMI ENT: normal ENT inspection, hearing grossly normal, TMs normal, pharynx normal Neck: supple, no adenopathy, thyroid normal, no JVD, no carotid bruits, trachea midline Respiratory/Chest: chest non-tender, lungs clear, normal breath sounds, no respiratory distress, no accessory muscle use Cardiovascular: regular rate, rhythm, no edema, no gallop, no JVD, no murmur Abdomen: normal bowel sounds, soft, no organomegaly, + mild tenderness, + pertinent finding (No guarding/rigidity) Extremities: normal range of motion, non-tender, normal inspection, no pedal edema, no calf tenderness, normal capillary refill, pelvis stable 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, no motor/sensory deficits, alert, normal mood/affect, oriented x 3 Skin: normal color, warm/dry, no rash Lymphatic: no adenopathy Laboratory Results Last 24 Hours Test 11/27/16 05:32 White Blood Count 5.47 K/uL Red Blood Count 4.02 M/uL Hemoglobin 12.9 g/dL Hematocrit 38.8 % Mean Corpuscular Volume 96.5 fL Mean Corpuscular Hemoglobin 32.1 pg Mean Corpuscular Hemoglobin Concent 33.2 g/dl RDW Standard Deviation 50.4 fL RDW Coefficient of Variation 14.1 % Platelet Count 202 K/uL Mean Platelet Volume 11.9 fL Sodium Level 146 mmol/L Potassium Level 4.1 mmol/L Chloride Level 111 mmol/L Carbon Dioxide Level 26 mmol/L Anion Gap 9.0 mmol/L Blood Urea Nitrogen 9 mg/dl Creatinine 0.92 mg/dl Estimated GFR () 87.8 Estimated GFR (Non- 75.7 BUN/Creatinine Ratio 9.9 Random Glucose 85 mg/dl Calcium Level 8.1 mg/dl Diagnostic Results USD Gall bladder: 1.Multiple small gallstones combine with a small amount of gallbladder sludge. 2. Slight thickening of the gallbladder wall with no evidence for pericholecystic fluid. 3. Slight prominence of the extra hepatic common bile duct distally unchanged from the prior study. Assessment and Plan Patient is a 46 Yr Female with PMH of Mood disorder, GERD and Tobacco use disorder presented with 1 week history of RUQ and Epigastric abdominal pain which is worse with eating associated with nausea. Gallbladder ultrasound showed trace amount of sludge and debris in the gallbladder lumen. 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
[2016-11-27 13:20] VITALS: BP 129/85; PULSE 54; O2SAT 96
[2016-11-27] MEDS: PANTOprazole SOD 40 MG TAB PO SCH ×2 (14:07→21:37)
[2016-11-27] MEDS: SERTRALINE HCL 50 MG TAB PO SCH (14:07)
--- NOTE | 2016-11-27 14:07 | OPERATIVE REPORT ---
DATE OF OPERATION: 11/27/2016 PREOPERATIVE DIAGNOSES: Acute cholecystitis, cholelithiasis. POSTOPERATIVE DIAGNOSIS: Same. PROCEDURE: Laparoscopic cholecystectomy. SURGEON: Luisana Valladares M.D. ANESTHESIA: General. IV FLUIDS: 1400 mL. URINE OUTPUT: NA. ESTIMATED BLOOD LOSS: About 150 mL. FINDINGS: Significant inflammation, gallbladder. The gallbladder wall thickening, edema and inflammation with gallstones. COMPLICATIONS: None. INDICATIONS FOR THE PROCEDURE: This is a 46-year-old female who presented to the ED couple times with the right upper quadrant pain and last week the patient come to the ED, sent home with pain medication; however, the patient still has a lot of pain in the right upper quadrant and yesterday the patient come back to the ED. The patient was diagnosed with acute cholecystitis and cholelithiasis, admitted the patient to hospital overnight and gave her IV fluid, IV antibiotic, comfort the pain and cool down gallbladder. The patient had ultrasound showing acute cholecystitis with cholelithiasis and patient will be required to do laparoscopic cholecystectomy, possible open, possible cholangiogram. I did talk to the patient about the benefit and risk alternate procedure. I indicated the risks may include but not limited such as bleeding, infection, injury to common bile duct, injury to bowel, bile leak, may need ERCP, myocardial infarction, stroke, DVT, even . The patient understands. She signed informed consent and I answered all questions. DETAILS OF PROCEDURE: We brought the patient to the OR, put the patient in the supine position. The patient received SCD on bilateral legs to prevent DVT. Also, the patient received 2 grams Ancef IV for prophylactic antibiotic. The patient received general anesthesia without difficulty. The abdomen was prepped and draped in routine sterile fashion. After time out, I injected local anesthesia by using 1% lidocaine mixed with 0.5% Marcaine just above the umbilical. Then I made a small incision just above umbilical, opened fascia, opened peritoneum under direct vision. I put a Hector trocar in, connected to CO2 to create pneumoperitoneum. Flow rate 6 liter per minute. Pressure not more than 14 mmHg. Once we got a nice pneumoperitoneum, we put another 3.5 mm trocar on the right upper quadrant. Once all trocars in we put grasper in to hold the gallbladder on the base put direction to the diaphragm; however, at this moment we exposed the abdomen shows no more findings on the stomach, small bowel, large bowel and liver, no free fluid on the pelvic area; however, the patient showing significant inflammation gallbladder and edema wall thickening. At this moment also there are omentum covers the gallbladder. We peeled down the omentum and then we put another grasper in to hold the pouch over the gallbladder, put latter to expose the triangle of Calot and at this moment the cystic duct was identified and mobilized and put two 5 mm metal clips on the proximal cystic duct, 1 on the distal cystic duct. Then, I used scissor transection the cystic duct. Then the cystic artery was identified and mobilized. I put two 5 mm metal clips on the proximal cystic artery, 1 on the distal cystic artery. Then, I used scissor transection the cystic artery, however during the takedown of the gallbladder from the liver bed there was significant bleeding based on the significant inflammation and some oozing from the liver bed. At this moment once we take down the gallbladder then I put Surgicel and hold the pressure for 10 minutes, rechecked and no active bleeding. Then we removed the gallbladder through the catch bag and then we reinserted Hector trocar in and created pneumoperitoneum again to look around the abdomen. No active bleeding, no bile leak from the liver bed. Then we removed all trocars under direct vision, no active bleeding. The pneumoperitoneum was released. Then using #1 Vicryl [id number] closed the umbilical incision and fascial layer [id number] x2, closed subcutaneous layer by using interrupted and closed skin by using 4-0 Vicryl. Closed subcutaneous layer by using 2-0 Vicryl for interrupted and then we closed another 3.5 mm trocar site skin only by using 4-0 Vicryl. We put the dressing on. The patient tolerated the procedure well. All instrument, needle and sponge count correct x2 at the end of case. The patient back to the recovery room in stable condition. After the procedure, I did talk to the patient and the patient's family member about the OR findings and the patient will stay hospital overnight to monitor. Right now the patient has no significant abdominal pain and will monitor patient, repeat the lab in the morning. They understand. I attest to the content of the Intraoperative Record and any orders documented therein. Any exceptio ns are noted below.
[2016-11-27] MEDS: NICOTINE 7 MG/24 HR TDSY TD SCH (14:08)
[2016-11-27 14:20] VITALS: BP 115/76; PULSE 69; O2SAT 97
[2016-11-27 16:07] VITALS: BP 108/66; PULSE 55; TEMP 36.5; O2SAT 98
[2016-11-28] VITALS: BP 114/70; PULSE 62; TEMP 36.5; O2SAT 97
[2016-11-28] MEDS: OXYCODONE/ACETAMINOPHEN 5-325 TAB PO PRN (00:01)
[2016-11-28] MEDS: LACTATED RINGER'S 1000ML 1,000 ML IV SCH (01:34)
[2016-11-28 04:06] VITALS: BP 117/65; PULSE 52; TEMP 36.6; O2SAT 96
[2016-11-28] MEDS ORDERED: CEFAZOLIN IV 2,000 MG/60 ML D5W IV ONE (06:00)
--- NOTE | 2016-11-28 06:29 | Surgery Progress Note ---
Surgery Progress Note Date of Service Nov 28, 2016. Subjective Post OP Day: 1 + feeling well S/P lap braxton, POD 1, pt is doing fine, no abdominal pain, she tolerated diet. I update about finding of OR and the procedure pt had. pt understood, I answered all questions. Objective Vital Signs: Date Time Temp Pulse Resp B/P Pulse Ox O2 Delivery O2 Flow Rate FiO2 11/28/16 04:06 36.6 52 14 117/65 96 Room Air 11/28/16 00:00 36.5 62 14 114/70 97 Room Air 11/28/16 00:00 Room Air 11/27/16 16:07 36.5 55 16 108/66 98 Nasal Cannula 2.0 11/27/16 15:45 Room Air 11/27/16 14:20 69 16 115/76 97 Nasal Cannula 2.0 11/27/16 13:20 54 16 129/85 96 Nasal Cannula 2.0 11/27/16 12:48 53 16 123/84 96 Nasal Cannula 2.0 11/27/16 12:20 Nasal Cannula 2.0 11/27/16 12:20 95 Nasal Cannula 2.0 11/27/16 12:20 36.5 54 16 119/77 95 Nasal Cannula 2.0 11/27/16 12:05 52 15 93 11/27/16 12:05 51 15 11/27/16 12:04 111/72 11/27/16 12:02 36.4 11/27/16 12:00 51 14 11/27/16 12:00 52 14 92 11/27/16 11:59 112/73 11/27/16 11:55 62 16 11/27/16 11:55 61 16 94 11/27/16 11:54 119/83 11/27/16 11:50 56 12 91 11/27/16 11:50 57 12 11/27/16 11:49 59 16 11/27/16 11:49 58 16 95 11/27/16 11:44 67 19 11/27/16 11:44 66 19 125/87 97 11/27/16 11:39 63 13 125/65 97 11/27/16 11:39 63 13 11/27/16 11:38 62 15 97 11/27/16 11:38 65 15 11/27/16 11:34 123/68 11/27/16 11:33 67 14 98 11/27/16 11:33 67 14 11/27/16 11:29 121/68 11/27/16 11:28 61 15 11/27/16 11:28 62 15 97 11/27/16 11:24 141/78 11/27/16 11:23 36.2 81 12 136/87 96 Mask 10 11/27/16 11:23 69 12 97 11/27/16 11:23 68 12 11/27/16 08:10 Room Air 11/27/16 07:09 36.5 50 16 127/83 96 Room Air General Appearance: WD/WN Head: normocephalic Neck: supple Respiratory/Chest: chest non-tender, lungs clear Cardiovascular: regular rate, rhythm, no edema, no gallop, no JVD Abdomen: normal bowel sounds, non tender, non distended, soft Incision(s): clean, dry, intact Extremities: normal range of motion, non-tender, normal inspection Laboratory Results: Results Past 24 Hours Test 11/28/16 04:44 Range/Units Assessment & Plan IMP S/P [facility] [place] pt is doing fine, she wants to go home today, I gave pt post-op care instruction, F/U me 1 week,
[2016-11-28 07:28] VITALS: BP 107/68; PULSE 50; TEMP 36.6; O2SAT 97
[2016-11-28 07:30] LABS: BASO % 0.2 %; BASO ABS # 0.02 K/uL (0-0.2); COMPLETE YES; EOS % 0.4 %; HEMATOCRIT 34.1 % (37-47); IG% 0.1 %; LYMPH % 22.7 %; LYMPH ABS # 2.03 K/uL (1.2-3.4); MEAN CELL VOLUME 93.9 fL (80-100); MEAN CORPUSCULAR HEMOGLOBIN 31.4 pg (25-34); MEAN CORPUSCULAR HGB CONC 33.4 g/dl (32-36); MEAN PLATELET VOLUME 11.1 fL (7.4-10.4); NEUT % 70.6 %; PLATELET COUNT 197 K/uL (130-400); RED BLOOD COUNT 3.63 M/uL (4.2-5.4); WHITE BLOOD COUNT 8.96 K/uL (4.8-10.8)
[2016-11-28 08:03] LABS: BLOOD UREA NITROGEN 9 mg/dl (7-18); CARBON DIOXIDE 25 mmol/L (21-32); CHLORIDE 110 mmol/L (98-107); GLUCOSE 94 mg/dl (70-99); POTASSIUM 3.5 mmol/L (3.5-5.1); SODIUM 144 mmol/L (136-145)
--- NOTE | 2016-11-28 08:17 | Anesthesiology Progress Note ---
Anesthesia Post Op Note Date & Time Nov 28, 2016 at 08:16 Vital Signs Vital Signs Past 12 Hours Date Time Temp Pulse Resp B/P Pulse Ox O2 Delivery O2 Flow Rate FiO2 11/28/16 07:28 36.6 50 16 107/68 97 Room Air 11/28/16 04:06 36.6 52 14 117/65 96 Room Air 11/28/16 00:00 36.5 62 14 114/70 97 Room Air 11/28/16 00:00 Room Air Notes Mental Status: alert / awake / arousable, participated in evaluation Pt Amnestic to Procedure: Yes Nausea / Vomiting: adequately controlled Pain: adequately controlled Airway Patency, RR, SpO2: stable & adequate BP & HR: stable & adequate Hydration State: stable & adequate Anesthetic Complications: no major complications apparent
[2016-11-28] MEDS: SERTRALINE HCL 50 MG TAB PO SCH (08:39)
[2016-11-28] MEDS: PANTOprazole SOD 40 MG TAB PO SCH (08:39)
[2016-11-28] MEDS: NICOTINE 7 MG/24 HR TDSY TD SCH (08:40)
--- NOTE | 2016-11-28 10:19 | Hospitalist Progress Note ---
Hospitalist Progress Note Date of Service Nov 28, 2016. Subjective Pt evaluation today including: conversation w/ patient, physical exam, lab review, review of inpatient medication list Patient is interviewed and examined at bedside. She had some mild soreness at the surgical site. Tolerating diet well. Denies any nausea,vomiting, fever, chills. Feels she is ready to go home. Medications Medications (Trade) Dose Ordered Sig/Matteo Route Start Time Stop Time Status Last Admin Dose Admin Miscellaneous (Surgicel Absorb Hemostat 2in X 14in) 1 ea ONE ONCE TOP 11/27/16 10:40 11/27/16 10:41 DC 11/27/16 10:40 1 EA Bacitracin (BACITRACIN ZINC Oint) 1 appln ONE ONCE TOP 11/27/16 10:40 11/27/16 10:41 DC 11/27/16 10:40 1 APPLN Miscellaneous (Lidocaine 1% + Marcaine 0.5%) 20 ml ONE ONCE INJ 11/27/16 11:02 11/27/16 11:03 DC 11/27/16 11:02 20 ML Objective Vital Signs Date Time Temp Pulse Resp B/P Pulse Ox O2 Delivery O2 Flow Rate FiO2 11/28/16 07:30 Room Air 11/28/16 07:28 36.6 50 16 107/68 97 Room Air 11/28/16 04:06 36.6 52 14 117/65 96 Room Air 11/28/16 00:00 36.5 62 14 114/70 97 Room Air 11/28/16 00:00 Room Air 11/27/16 16:07 36.5 55 16 108/66 98 Nasal Cannula 2.0 11/27/16 15:45 Room Air 11/27/16 14:20 69 16 115/76 97 Nasal Cannula 2.0 11/27/16 13:20 54 16 129/85 96 Nasal Cannula 2.0 11/27/16 12:48 53 16 123/84 96 Nasal Cannula 2.0 11/27/16 12:20 Nasal Cannula 2.0 11/27/16 12:20 95 Nasal Cannula 2.0 11/27/16 12:20 36.5 54 16 119/77 95 Nasal Cannula 2.0 11/27/16 12:05 52 15 93 11/27/16 12:05 51 15 11/27/16 12:04 111/72 11/27/16 12:02 36.4 11/27/16 12:00 51 14 11/27/16 12:00 52 14 92 11/27/16 11:59 112/73 11/27/16 11:55 62 16 11/27/16 11:55 61 16 94 11/27/16 11:54 119/83 11/27/16 11:50 56 12 91 11/27/16 11:50 57 12 11/27/16 11:49 59 16 11/27/16 11:49 58 16 95 11/27/16 11:44 67 19 11/27/16 11:44 66 19 125/87 97 11/27/16 11:39 63 13 125/65 97 11/27/16 11:39 63 13 11/27/16 11:38 62 15 97 11/27/16 11:38 65 15 11/27/16 11:34 123/68 11/27/16 11:33 67 14 98 11/27/16 11:33 67 14 11/27/16 11:29 121/68 11/27/16 11:28 61 15 11/27/16 11:28 62 15 97 11/27/16 11:24 141/78 11/27/16 11:23 36.2 81 12 136/87 96 Mask 10 11/27/16 11:23 69 12 97 11/27/16 11:23 68 12 Physical Exam General Appearance: WD/WN, no apparent distress Eyes: normal inspection, PERRL, EOMI, sclerae normal ENT: normal ENT inspection, hearing grossly normal, TMs normal, pharynx normal Neck: supple, no adenopathy, thyroid normal, no JVD, no carotid bruits, trachea midline Respiratory/Chest: chest non-tender, lungs clear, normal breath sounds, no respiratory distress, no accessory muscle use Cardiovascular: regular rate, rhythm, no edema, no gallop, no JVD, no murmur Abdomen: normal bowel sounds, soft, no organomegaly, + pertinent finding (Mild tenderness at the surgical site. 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, no motor/sensory deficits, alert, normal mood/affect, oriented x 3 Skin: normal color, warm/dry, no rash Lymphatic: no adenopathy Laboratory Results Last 24 Hours Test 11/28/16 07:10 White Blood Count 8.96 K/uL Red Blood Count 3.63 M/uL Hemoglobin 11.4 g/dL Hematocrit 34.1 % Mean Corpuscular Volume 93.9 fL Mean Corpuscular Hemoglobin 31.4 pg Mean Corpuscular Hemoglobin Concent 33.4 g/dl Platelet Count 197 K/uL Mean Platelet Volume 11.1 fL Neutrophils (%) (Auto) 70.6 % Lymphocytes (%) (Auto) 22.7 % Monocytes (%) (Auto) 6.0 % Eosinophils (%) (Auto) 0.4 % Basophils (%) (Auto) 0.2 % Neutrophils # (Auto) 6.32 K/uL Lymphocytes # (Auto) 2.03 K/uL Monocytes # (Auto) 0.54 K/uL Eosinophils # (Auto) 0.04 K/uL Basophils # (Auto) 0.02 K/uL RDW Standard Deviation 46.9 fL RDW Coefficient of Variation 13.6 % Immature Granulocyte % (Auto) 0.1 % Immature Granulocyte # (Auto) 0.01 K/uL Sodium Level 144 mmol/L Potassium Level 3.5 mmol/L Chloride Level 110 mmol/L Carbon Dioxide Level 25 mmol/L Anion Gap 9.0 mmol/L Blood Urea Nitrogen 9 mg/dl Creatinine 0.80 mg/dl Estimated GFR () 103.9 Estimated GFR (Non- 89.7 BUN/Creatinine Ratio 11.0 Random Glucose 94 mg/dl Calcium Level 8.0 mg/dl Diagnostic Results CXR: Negative chest. Gall bladder USD: 1.Multiple small gallstones combine with a small amount of gallbladder sludge. 2. Slight thickening of the gallbladder wall with no evidence for pericholecystic fluid. 3. Slight prominence of the extra hepatic common bile duct distally unchanged from the prior study. Assessment and Plan Patient is a 46 Yr Female with PMH of Mood disorder, GERD and Tobacco use disorder presented with 1 week history of RUQ and Epigastric abdominal pain which is worse with eating associated with nausea. Gallbladder ultrasound showed trace amount of sludge and debris in the gallbladder lumen. 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
--- NOTE | 2016-11-28 10:31 | Discharge Instructions ---
Discharge Instructions Admission Reason for Admission: Biliary Colic Discharge Discharge Diagnosis / Problem: Acute Cholecystitis Discharge Goals Goal(s): Decrease discomfort, Improve function Activity Recommendations Activity Limitations: per Instructions/Follow-up section (Per surgry recommendations) Exercise/Sports Limitations: as tolerated . Instructions / Follow-Up Instructions / Follow-Up Follow up with on 12/04/16 at 2.30pm Follow up with on 12/03/16 at 11.10am Seek immediate medical attention if you develop any fever, worsening abdominal pain, discharge from surgical site. Current Hospital Diet Patient's current hospital diet: Regular Diet Discharge Diet Recommended Diet: Regular Diet Procedures Procedures Performed: Laparoscopic Cholecystectomy Pending Studies Studies pending at discharge: no Medical Emergencies . Who to Call and When: Medical Emergencies: If at any time you feel your situation is an emergency, please call 911 immediately. . Non-Emergent Contact Non-Emergency issues call your: Primary Care Provider, Surgeon . "Provider Documentation" section prepared by Peter Banda. VTE Core Measure Inpt VTE Proph given/why not?: SCD's
[2016-11-28 10:37] VITALS: BP 107/68; PULSE 50; TEMP 36.6; O2SAT 97
--- NOTE | 2016-11-28 10:42 | Discharge Summary ---
Discharge Summary Admission Date: Nov 26, 2016 at 13:02 Discharge Date: Nov 28, 2016 Discharge Disposition: Home Principal Diagnosis: Acute Cholecystitis S/P Laparoscopic Cholecystectomy Secondary Diagnoses/Problems: Obstructive sleep apnea Tobacco use disorder Depression Procedures: Laparoscopic Cholecystectomy Gall bladder Ultrasound: 1.Multiple small gallstones combine with a small amount of gallbladder sludge. 2. Slight thickening of the gallbladder wall with no evidence for pericholecystic fluid. 3. Slight prominence of the extra hepatic common bile duct distally unchanged from the prior study. Medication Reconciliation Continued Medications: Omeprazole (Prilosec) 20 Mg Capcr 20 MG PO BID, CAP Oxycodone Ir (Roxicodone Ir) 5 Mg Tab 1-2 TAB PO Q4H PRN for Pain, #12 TAB Sertraline HCl (Sertraline HCl) 50 Mg Tab 75 MG PO DAILY Admission Information HPI (per Admitting provider): Taina Conway is a 46 year old female who was admitted to hospital for RUQ pain with nausea foe 1 week, last week, pt came to ER with RUQ pain, pt was sent to home with pain medicine, now, pt is still have RUQ pain, and with nausea , pt denies fever, no diarrhea, but some back pain, the fat food is worse pain, Physical Exam (per Admitting): General Appearance: WD/WN, no apparent distress Head: normocephalic Eyes: normal inspection ENT: normal ENT inspection Neck: supple Respiratory/Chest: chest non-tender Cardiovascular: regular rate, rhythm, no edema, no gallop, no JVD Abdomen/GI: normal bowel sounds, soft, + tenderness Back: normal inspection Extremities/Musculoskelatal: normal inspection, no calf tenderness, normal capillary refill, no pedal edema 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 The abdominal pain was radiating to right side. Gallbladder ultrasound showed trace amount of sludge and debris in the gallbladder lumen. Patient was diagnosed to have acute cholecystitis. from surgery was consulted and based on the recommendations, patient underwent laparoscopic cholecystectomy. Patient tolerated the procedure well and did well post OP. Her symptoms improved and was stable at the time of discharge. She was advised to follow up with her PCP and her surgeon in 1 week and was discharged home. 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 Discharge Instructions Discharge Instructions Admission Reason for Admission: Biliary Colic Discharge Discharge Diagnosis / Problem: Acute Cholecystitis Discharge Goals Goal(s): Decrease discomfort, Improve function Activity Recommendations Activity Limitations: per Instructions/Follow-up section (Per surgry recommendations) Exercise/Sports Limitations: as tolerated . Instructions / Follow-Up Instructions / Follow-Up Follow up with on 12/04/16 at 2.30pm Follow up with on 12/03/16 at 11.10am Seek immediate medical attention if you develop any fever, worsening abdominal pain, discharge from surgical site. Current Hospital Diet Patient's current hospital diet: Regular Diet Discharge Diet Recommended Diet: Regular Diet Procedures Procedures Performed: Laparoscopic Cholecystectomy Pending Studies Studies pending at discharge: no Medical Emergencies . Who to Call and When: Medical Emergencies: If at any time you feel your situation is an emergency, please call 911 immediately. . Non-Emergent Contact Non-Emergency issues call your: Primary Care Provider, Surgeon . "Provider Documentation" section prepared by Peter Banda. VTE Core Measure Inpt VTE Proph given/why not?: SCD's
== END 2016-11-28 11:18 | disposition home or self-care (01) | DRG 419 ==
LOC: ENRESERVDT → ENRESERVTM → C.EDB 19:53 → C.3E 22:48 → OBSVTOIN 11-26 13:02
PROVIDERS: ADMIT Internal Medicine; ATTEND Internal Medicine
PROC: 0FT44ZZ Resection of Gallbladder, Percutaneous Endoscopic Approach (ICD-10-PCS; principal; 2016-11-27 09:25)
DX: K80.00 Calculus of gallbladder with acute cholecystitis without obstruction (principal); K82.8 Other specified diseases of gallbladder; R19.7 Diarrhea, unspecified; K21.9 Gastro-esophageal reflux disease without esophagitis; G47.33 Obstructive sleep apnea (adult) (pediatric); F32.9 Major depressive disorder, single episode, unspecified; F17.210 Nicotine dependence, cigarettes, uncomplicated; Z79.899 Other long term (current) drug therapy